=== PATIENT | female | born 1980 | race Two or more races ===

== ENCOUNTER 2022-03-12 09:38 | Emergency (ER) | payer OTHER ==
[2022-03-12 10:08] VITALS: BP 110/76; PULSE 97; TEMP 98.3; BMI 21.2
== END 2022-03-12 11:07 | disposition home or self-care (01) ==
LOC: JERFT 09:38 → JER 09:38 → JERFT 11:07
DX: H10.32 Unspecified acute conjunctivitis, left eye (principal)
CPT/HCPCS: 99283-25